=== PATIENT | male | born 1950 | race Caucasian/White ===

== ENCOUNTER 2018-04-29 11:37 | Emergency (ER) | payer MEDICARE, OTHER ==
[~2018-04-29] VITALS: Ht 182.9 cm; Wt 98.2 kg
[2018-04-29 11:39] VITALS: Ht 182.9 cm; Wt 98.2 kg
[2018-04-29] MEDS ORDERED: VENTOLIN HFA18 GM INH (11:42)
[2018-04-29] MEDS ORDERED: TENORMIN25 MG PO (11:42)
[2018-04-29] MEDS ORDERED: VITAMIN D31000 UNI2 PO (11:43)
[2018-04-29] MEDS ORDERED: SYMBICORT 16010.2 GM INH (11:43)
[2018-04-29] MEDS ORDERED: FLUTICASONE PRO16 GM NASAL (11:44)
[2018-04-29] MEDS ORDERED: VITAMIN B-121000 MCG PO (11:44)
[2018-04-29] MEDS ORDERED: CLEOCIN HCL150 MG PO (11:44)
[2018-04-29] MEDS ORDERED: FOLIC ACID1 MG PO (11:45)
[2018-04-29] MEDS ORDERED: CLARITIN 10 MG10 MG PO (11:45)
[2018-04-29] MEDS ORDERED: NIZORAL 2 % SH120 ML TOPICAL (11:45)
[2018-04-29] MEDS ORDERED: XALATAN 0.0052.5 ML EACH EYE (11:45)
[2018-04-29] MEDS ORDERED: VIAGRA100 MG PO (11:46)
[2018-04-29] MEDS ORDERED: ZINC OXIDE 20 %30 GM TOPICAL (11:46)
[2018-04-29] MEDS ORDERED: CENTRUM SILVER1 EAC3 PO (11:46)
[2018-04-29] MEDS ORDERED: GLUCOPHAGE500 MG PO (11:46)
[2018-04-29 12:12] LABS: BASOPHILS 0.1 % (0-2); EOSINOPHILS 0.9 % (0-7); HEMATOCRIT 49.4 % (42.0-54.0); HEMOGLOBIN 17.5 g/dL (13.5-17.5); IMMATURE GRANULOCYTES 0.3 % (0-5); LYMPHOCYTES 12.2 % (15-50); MCH 35.1 pg (26.0-34.0); MCHC 35.4 g/dL (31.0-37.0); MCV 99.2 fL (80.0-100.0); MONOCYTES 10.3 % (2-11); NEUTROPHILS 76.2 % (40-80); PLATELET COUNT 105 10x3/uL (130-400); RBC 4.98 10x6/uL (4.20-6.10); RDW 14.5 % (11.5-14.5); WBC 11.4 10x3/uL (4.8-10.8)
[2018-04-29] MEDS ORDERED: IMODIUM2 MG PO (12:14)
[2018-04-29 12:25] LABS: ALBUMIN 3.6 g/dL (3.4-5.0); ANION GAP 13.3 mmol/L (8-16); BILIRUBIN - TOTAL 1.17 mg/dL (0.2-1.3); CALCIUM 9.5 mg/dL (8.5-10.1); CARBON DIOXIDE 25.8 mmol/L (21.0-32.0); CREATININE - SERUM 1.2 mg/dL (0.6-1.3); POTASSIUM - SERUM 4.1 mmol/L (3.5-5.1); PROTEIN - SERUM 8.9 g/dL (6.4-8.2)
[2018-04-29 12:26] LABS: APPEARANCE CLEAR (CLEAR); BILIRUBIN NEGATIVE (NEGATIVE); COLOR YELLOW (YELLOW); GLUCOSE NEGATIVE (NEGATIVE); KETONE MODERATE mg/dL (NEGATIVE); NITRITE NEGATIVE (NEGATIVE); PROTEIN 1+ mg/dL (NEGATIVE); SPECIFIC GRAVITY 1.015 (1.005-1.020); UROBILINOGEN NORMAL (NORMAL)
[2018-04-29 12:28] LABS: BACTERIA FEW /hpf (NONE SEEN); EPITHELIAL CELLS 0-5 /hpf (0-5); MUCUS <1+ /lpf (NONE SEEN); RED CELLS - URINE 0-5 /hpf (0-5); WHITE CELLS - URINE 0-5 /hpf (0-5)
[2018-04-29 13:10] VITALS: BP 130/89
== END 2018-04-29 13:11 | disposition home or self-care (01) ==
LOC: D.ER 11:37
PROVIDERS: Emergency Medicine
DX: R19.7 Diarrhea, unspecified (principal); R10.9 Unspecified abdominal pain; E11.9 Type 2 diabetes mellitus without complications; I10 Essential (primary) hypertension; Z87.19 Personal history of other diseases of the digestive system; J44.9 Chronic obstructive pulmonary disease, unspecified

== ENCOUNTER → 2020-02-18 12:47 | Outpatient (CLI) | payer OTHER ==
[2018-04-29 11:39] VITALS: BMI 29.3
[~2020-02-18 12:47] MED LIST: CENTRUM SILVER1 EAC3 PO; CLARITIN 10 MG10 MG PO; CLEOCIN HCL150 MG PO; FLUTICASONE PRO16 GM NASAL; FOLIC ACID1 MG PO; GLUCOPHAGE500 MG PO; IMODIUM2 MG PO; NIZORAL 2 % SH120 ML TOPICAL; SYMBICORT 16010.2 GM INH; TENORMIN25 MG PO; VENTOLIN HFA18 GM INH; VIAGRA100 MG PO; VITAMIN B-121000 MCG PO; VITAMIN D31000 UNI2 PO; XALATAN 0.0052.5 ML EACH EYE; ZINC OXIDE 20 %30 GM TOPICAL
== END | disposition home or self-care (01) ==
LOC: D.CT 12:47
PROVIDERS: ATTEND Nurse Practitioner Family
DX: R13.19 Other dysphagia (principal)

== ENCOUNTER → 2020-05-19 12:28 | Outpatient (CLI) | payer OTHER ==
[2018-04-29 11:39] VITALS: BMI 29.3
== END | disposition home or self-care (01) ==
LOC: D.CT 12:28
DX: J44.9 Chronic obstructive pulmonary disease, unspecified (principal); F10.20 Alcohol dependence, uncomplicated; Z72.0 Tobacco use; K21.9 Gastro-esophageal reflux disease without esophagitis; I10 Essential (primary) hypertension